=== PATIENT | female | born 1965 | race Caucasian/White ===

== ENCOUNTER 2021-01-03 13:11 | Emergency (ER) | payer BC, OTHER ==
[~2021-01-03] VITALS: Ht 170.2 cm; Wt 81.8 kg
[2021-01-03 13:38] VITALS: BP 202/89
--- NOTE | 2021-01-03 14:14 | PHYS DOC ---
Past Medical History Past Medical History: Hypertension Past Surgical History: Tonsillectomy Additional Past Surgical Histo: NOSE General Adult EDM: Chief Complaint: SKIN RASH/ABSCESS Problems: (1) Rash HPI: HPI: Patient is a 55 year old female with history of hypertension who presents with a rash and swelling to her lower right lower extremity since yesterday. Patient states that she first noticed the rash yesterday when she got home from work. She wears both a right-sided ankle brace as well as a knee brace for discomfort while working on her feet. She states the area was also swollen and achey, but it is greatly improved since last night. She reports that the rash was present even when she wore regular socks and that her braces are slide-on and not "too tight." She has been wearing these braces for approximately the past 2 weeks. She reports associated urticaria on the area affected by the rash. She states she takes metoprolol for blood pressure. She also used to take spironolactone but it has been discontinued for a few weeks. Patient denies fever, chills, headache, chest pain, palpitations, shortness of breath, cough, abdominal pain, N/V/D. Patient has no other complaints at this time. Review of Systems: Review of Systems: Constitutional: Denies fever or chills. Respiratory: Denies cough or shortness of breath. Cardiovascular: Denies chest pain or edema. GI: Denies abdominal pain, nausea, vomiting, bloody stools or diarrhea. : Denies dysuria or hematuria. Musculoskeletal: See HPI Integument: See HPI Neurologic: Denies headache, vision changes, focal weakness or sensory changes. Heart Score: C/O Chest Pain: No Current Medications: Current Medications Medications (Trade) Dose Ordered Sig/Naida Start Time Stop Time Status Last Admin Dose Admin Multi-Ingredient Ointment (Hydrocerin, Eucerin Cream) 1 evelyn 1X PRN 01/03/21 14:15 UNV Allergies: Allergies: Allergies Coded Allergies Type Severity Reaction Last Updated Verified Penicillins Allergy Severe RASH 01/03/21 Yes Sulfa (Sulfonamide Antibiotics) Allergy Severe RASH 01/03/21 Yes Tetracyclines Allergy Severe RASH 01/03/21 Yes codeine Allergy Severe RASH 01/03/21 Yes doxycycline Allergy Severe RASH 01/03/21 Yes Physical Exam: PE: Constitutional: Well developed, well nourished, no acute distress, non-toxic appearance. Cardiovascular:Heart rate regular rhythm, no murmur Lungs & Thorax: Bilateral breath sounds clear to auscultation Abdomen: Bowel sounds normal, soft, no tenderness, no masses, no pulsatile masses. Skin: Nonblanching rash with sharply demarcated borders present to lower RLE, margins are consistent with edges of reported apollo wrap braces. Skin appears dry and somewhat scaly. No temperature changes noted on or around affected area. Back: No tenderness, no CVA tenderness. Extremities: No obvious deformities. RLE ankle is slightly swollen with trace edema. Tenderness to palpation on medial aspect proximal to ankle. DP/PT pulses palpable bilaterally. No cyanosis, no clubbing, ROM intact. Neurologic: Alert and oriented X 3, normal motor function, normal sensory function, no focal deficits noted. Psychologic: Affect normal, judgement normal, mood normal. Current Patient Data: Labs: Laboratory Tests Test 01/03/21 14:33 White Blood Count 5.0 x10^3/uL (4.0-11.0) Red Blood Count 4.19 x10^6/uL (3.50-5.40) Hemoglobin 13.3 g/dL (12.0-15.5) Hematocrit 38.6 % (36.0-47.0) Mean Corpuscular Volume 92 fL (79-100) Mean Corpuscular Hemoglobin 32 pg (25-35) Mean Corpuscular Hemoglobin Concent 35 g/dL (31-37) Red Cell Distribution Width 13.5 % (11.5-14.5) Platelet Count 201 x10^3/uL (140-400) Neutrophils (%) (Auto) 67 % (31-73) Lymphocytes (%) (Auto) 24 % (24-48) Monocytes (%) (Auto) 7 % (0-9) Eosinophils (%) (Auto) 2 % (0-3) Basophils (%) (Auto) 1 % (0-3) Neutrophils # (Auto) 3.3 x10^3/uL (1.8-7.7) Lymphocytes # (Auto) 1.2 x10^3/uL (1.0-4.8) Monocytes # (Auto) 0.3 x10^3/uL (0.0-1.1) Eosinophils # (Auto) 0.1 x10^3/uL (0.0-0.7) Basophils # (Auto) 0.1 x10^3/uL (0.0-0.2) Sodium Level 143 mmol/L (136-145) Potassium Level 3.4 mmol/L (3.5-5.1) Chloride Level 106 mmol/L (98-107) Carbon Dioxide Level 30 mmol/L (21-32) Anion Gap 7 (6-14) Blood Urea Nitrogen 12 mg/dL (7-20) Creatinine 1.1 mg/dL (0.6-1.0) Estimated GFR (Cockcroft-Gault) 51.8 Glucose Level 87 mg/dL (70-99) Calcium Level 8.5 mg/dL (8.5-10.1) C-Reactive Protein, Quantitative 23.8 mg/L (0-3.3) Vital Signs: Vital Signs Date Time Temp Pulse Resp B/P (MAP) Pulse Ox O2 Delivery O2 Flow Rate FiO2 01/03/21 13:38 98.6 64 18 202/89 (126) 100 Room Air 98.6 Course & Med Decision Making: Course & Med Decision Making Pertinent Labs and Imaging studies reviewed. (See chart for details) Elevated CRP lab result was discussed with the patient. Patient was counseled that it is a nonspecific inflammatory marker, and that she will need to follow- up with rheumatology for further evaluation. Currently, the hospital does not have a retread supervisor available. Patient will be discharged with instruction for close follow-up with her primary care provider, who should be able to refer her to a retread supervisor. Patient is aware and agreeable to the plan. Dragon Disclaimer: Dragon Disclaimer: This electronic medical record was generated, in whole or in part, using a voice recognition dictation system. Departure Departure Impression: Primary Impression: CRP elevated Disposition: 01 HOME / SELF CARE / HOMELESS Condition: STABLE Referrals: STEVEN GILL MD (PCP) Additional Instructions: Please call your primary care provider today and schedule an appointment so that you may get a referral for rheumatology as soon as possible. Return to emergency department for worsening symptoms or increased pain. HARPER CHAN Jan 03, 2021 14:14
[2021-01-03] MEDS ORDERED: MINERAL OIL/PETROLATUM TOPICAL CREAM 113GM JAR. TP PRN (14:15)
[2021-01-03 14:38] LABS: BASO # 0.1 x10^3/uL (0.0-0.2); BASO % 1 % (0-3); EOS # 0.1 x10^3/uL (0.0-0.7); EOS % 2 % (0-3); HEMATOCRIT 38.6 % (36.0-47.0); HEMOGLOBIN 13.3 g/dL (12.0-15.5); LYMPH # 1.2 x10^3/uL (1.0-4.8); LYMPH % 24 % (24-48); MEAN CORPUSCULAR HEMOGLOBIN 32 pg (25-35); MEAN CORPUSCULAR HGB CONC 35 g/dL (31-37); MEAN CORPUSCULAR VOLUME 92 fL (79-100); MONO # 0.3 x10^3/uL (0.0-1.1); MONO % 7 % (0-9); NEUT # 3.3 x10^3/uL (1.8-7.7); NEUT % 67 % (31-73); PLATELET COUNT 201 x10^3/uL (140-400); RED BLOOD COUNT 4.19 x10^6/uL (3.50-5.40); RED CELL DISTRIBUTION WIDTH 13.5 % (11.5-14.5)
[2021-01-03 14:49] LABS: CALCIUM 8.5 mg/dL (8.5-10.1); CREATININE 1.1 mg/dL (0.6-1.0); GFR 51.8; POTASSIUM 3.4 mmol/L (3.5-5.1)
[2021-01-03 14:51] LABS: C-REACTIVE PROTEIN 23.8 mg/L (0-3.3)
== END 2021-01-03 16:18 | disposition home or self-care (01) ==
LOC: ER 13:11
DX: R79.82 Elevated C-reactive protein (CRP) (principal); I10 Essential (primary) hypertension; Z88.0 Allergy status to penicillin; Z88.1 Allergy status to other antibiotic agents; Z88.2 Allergy status to sulfonamides; Z88.5 Allergy status to narcotic agent
CPT/HCPCS: 36415; 80048; 85025; 86140; 99283